=== PATIENT | female | born 1960 | race Hispanic/Latino ===

== ENCOUNTER → 2017-09-17 | Outpatient (CLI) | payer OTHER ==
--- NOTE | 2017-10-01 08:25 | Diagnostic Imaging Report ---
#[id number] - MGSCRBIL #BILATERAL DIGITAL SCREENING MAMMOGRAM WITH CAD: 09/17/2017 CLINICAL: Routine screening. Comparison is made to exams dated: 12/01/2015 mammogram and 12/01/2015 ultrasound - [facility]. Current study contains 4 films. There are scattered fibroglandular elements in both breasts. Current study was also evaluated with a Computer Aided Detection (CAD) system. There are benign calcifications and an intramammary node in the left breast. No significant masses, calcifications, or other findings are seen in either breast. There has been no significant interval change. IMPRESSION: BENIGN There is no mammographic evidence of malignancy. A 1 year screening mammogram is recommended. The patient will be notified by letter of the results. Alfonso dietz/bárbara:09/30/2017 09:48:34 Deliverer Food: Jessica JULIEN(Mika)([place]), [facility] letter sent: Normal Exam Mammogram BI-RADS: 2 Benign
== END ==
LOC: MAMMO 11:45
PROVIDERS: ATTEND Internal Medicine
DX: Z12.31 Encounter for screening mammogram for malignant neoplasm of breast (principal)
CPT/HCPCS: 77067

== ENCOUNTER → 2017-12-25 | Outpatient (CLI) | payer OTHER ==
--- NOTE | 2017-12-25 12:15 | Diagnostic Imaging Report ---
EXAM: Bone mineral density study 12/25/2017 10:47 AM INDICATION: \S\Other specified disorders of bone density and structure COMPARISON: None FINDINGS: Evaluation of the left hip and lumbar spine was performed. The study is technically adequate. The patient's fracture risk is compared to an age-matched control. Left femoral neck bone mineral density: 0.863 g/cm2, T-score is -0.1, Z-score is 1.0. Left hip total bone mineral density: 0.974 g/cm2, T-score is 0.1, Z-score is 0.9. Lumbar spine total bone mineral density: 0.805 gm/cm2, T-score is -2.2, Z-score is -1.1. IMPRESSION: Bone mineralization by WHO Classification is osteopenia, the fracture risk is increased. Signed by: Dr. Benjamin Aguirre MD on 12/25/2017 12:11 PM
== END ==
LOC: DX 10:38
PROVIDERS: ATTEND Internal Medicine
DX: M85.80 Other specified disorders of bone density and structure, unspecified site (principal)
CPT/HCPCS: 77080

== ENCOUNTER → 2020-11-14 | Outpatient (CLI) | payer BC | LOC: MAMMO 14:10 | PROVIDERS: ATTEND Internal Medicine | DX: Z12.31 Encounter for screening mammogram for malignant neoplasm of breast (principal) | CPT/HCPCS: 71046; 77067 ==

== ENCOUNTER → 2021-06-20 | Outpatient (CLI) | payer OTHER | LOC: RAD 15:50 | PROVIDERS: ATTEND Internal Medicine | DX: M47.816 Spondylosis without myelopathy or radiculopathy, lumbar region (principal) | CPT/HCPCS: 72110; 72220 ==